=== PATIENT | male | born 1955 | race Caucasian/White ===

== ENCOUNTER 2018-06-11 13:17 | Outpatient (CLI) | payer BC ==
[2018-06-11] MEDS ORDERED: Gadobenate Dimeglumine 529 MG/1 ML (20ML VIAL) ONE (16:03)
--- NOTE | 2018-06-12 10:35 | MRI ---
MRI PELVIS WITH AND WITHOUT CONTRAST: (Prostate) Date: 06/11/18 INDICATION: History of prostate cancer and biopsy. COMPARISON: None. TECHNIQUE: Multiplanar, multisequence MR images were obtained of the pelvis utilizing prostate cancer specific p rotocol. 20 mL of MultiHance was utilized for the examination. The examination was interpreted utiliz ing separate etechies.in workstation for multiparametric evaluation. FINDINGS: The prostate measures 6.4 x 5.5 x 6.6 cm, for a total prostatic volume of 111.68 mL. There is a heter ogeneous appearance of the central gland consistent with changes of BPH. There is wedge shaped areas of mild hypointensity in the peripheral zone on T2. No focal area of restricted diffusion is seen wit hin the peripheral zone. No definite suspicious T2 signal abnormality is evident within the central z one. No area of abnormal enhancement is noted. IMPRESSION: 1. PI-RADS Category 2 - Low (clinically significant cancer is unlikely to be present). 2. Wedge-shaped regions of hypodensity within the peripheral zone are suspicious of sequelae of prio r prostatitis. Heterogeneous appearance of the central gland, with multiple encapsulated nodules wit hin the central zone, are suspicious for changes of BPH. POS: ANGELA
== END 2018-06-11 13:18 | disposition home or self-care (01) ==
LOC: TBSIIMAG 13:17
PROVIDERS: ATTEND Urology
DX: C61 Malignant neoplasm of prostate (principal); N40.2 Nodular prostate without lower urinary tract symptoms
CPT/HCPCS: 72197; 82565; A9579

== ENCOUNTER 2018-10-03 10:16 | Outpatient (CLI) | payer BC ==
--- NOTE | 2018-10-03 11:21 | RAD ---
RIGHT RIBS 3 VIEWS: Date: 10/03/18 HISTORY: Pain. COMPARISON: None. FINDINGS: No fracture. No cortical irregularity. No periosteal reaction. IMPRESSION: No evidence of a right rib fracture. POS: SHANE
== END 2018-10-03 10:17 | disposition home or self-care (01) ==
LOC: BICRAD 10:16
PROVIDERS: ATTEND Family Medicine
DX: R07.89 Other chest pain (principal)

== ENCOUNTER 2020-04-22 06:59 | Observation (INO) | payer BC ==
[2020-04-21 09:48] VITALS: BMI 28.8
[2020-04-22] MEDS ORDERED: Levofloxacin 500 mg/D5W 100 ml Premix Bag ONE (07:47)
[2020-04-22] MEDS ORDERED: Fentanyl 100 MCG/2 ML VIAL ONE ×2 (09:08→09:09)
[2020-04-22] MEDS ORDERED: B & O ONE (09:18)
[2020-04-22] MEDS ORDERED: Promethazine HCl 25 MG/ML VIAL SLOW IVP PRN (11:08)
[2020-04-22] MEDS ORDERED: Promethazine HCl 25 MG/ML VIAL IM PRN (11:08)
[2020-04-22] MEDS ORDERED: HYDROmorphone 2 MG/ML VIAL SLOW IVP PRN (11:08)
[2020-04-22] MEDS ORDERED: Meperidine HCl/PF 25 MG/ML VIAL SLOW IVP PRN (11:08)
[2020-04-22] MEDS ORDERED: Zolpidem Tartrate 5 MG TAB PO PRN (11:19)
[2020-04-22] MEDS ORDERED: Hyoscyamine Sulfate SL 0.125 mg Tablet SL PRN (11:19)
[2020-04-22] MEDS ORDERED: Phenazopyridine HCl 97.5 MG TABLET PO PRN (11:19)
[2020-04-22] MEDS ORDERED: Dextrose 5% in Water 1,000 ML IV PRN (11:19)
[2020-04-22] MEDS ORDERED: Bisacodyl 10 MG SUPP PR PRN (11:19)
[2020-04-22] MEDS ORDERED: HumaLOG 300 UNITS/3 ML VIAL SC PRN (11:19)
[2020-04-22] MEDS ORDERED: hydrALAZINE 20 MG/ML VIAL SLOW IVP PRN (11:19)
[2020-04-22] MEDS ORDERED: Oxybutynin 5 MG TAB PO PRN (11:19)
[2020-04-22] MEDS ORDERED: Ondansetron PF 4 MG/2 ML Vial IVP PRN (11:19)
[2020-04-22] MEDS ORDERED: diphenhydrAMINE 25 MG CAP PO PRN (11:19)
[2020-04-22] MEDS ORDERED: Mag-Al 1200 mg/1200 mg/30 ML UDCUP PO PRN (11:19)
[2020-04-22] MEDS ORDERED: Dextrose 50% Abboject 50 ML SYRINGE SLOW IVP PRN (11:19)
[2020-04-22] MEDS ORDERED: Acetaminophen 500 MG TAB PO PRN (11:19)
[2020-04-22] MEDS ORDERED: Morphine 2 MG/ML VIAL SLOW IVP PRN (11:19)
[2020-04-22] MEDS ORDERED: traMADol HCl 50 MG TAB PO PRN (11:25)
[2020-04-22] MEDS ORDERED: Lidocaine 1% PF 5 ML VIAL ONE (11:55)
[2020-04-22] MEDS ORDERED: Glycopyrrolate 0.2 MG/ML 5 ML SYRINGE ONE (11:55)
[2020-04-22] MEDS ORDERED: PROPOFOL 200 MG/20 ML VIAL ONE (11:55)
[2020-04-22] MEDS ORDERED: PHENYLEPHRINE-NS 100 MCG/ML 10 ML SYRINGE ONE (11:55)
[2020-04-22] MEDS ORDERED: Rocuronium Bromide 10 MG/ML (10ML VIAL) ONE (11:55)
[2020-04-22] MEDS ORDERED: Dexamethasone 20 MG/5 ML VIAL ONE (11:55)
[2020-04-22] MEDS ORDERED: Ondansetron PF 4 MG/2 ML Vial ONE (11:55)
--- NOTE | 2020-04-22 12:38 | OP ---
DATE OF PROCEDURE: 04/22/2020 SERVICE: Urology. PREOPERATIVE DIAGNOSIS: Benign prostatic hypertrophy with urinary retention. POSTOPERATIVE DIAGNOSIS: Benign prostatic hypertrophy with urinary retention. PROCEDURE PERFORMED: Transurethral resection of prostate with transurethral vaporization of the prostate. INDICATION FOR PROCEDURE: Mr. Guardado is a 65-year-old white male who was diagnosed with [place] 3+3 prostate cancer. He has an extremely large prostate with severe urinary symptoms. He is currently on active surveillance for his prostate cancer, but still wanted to do something about his urinary symptoms. His prostate was too large for UroLift, so we discussed transurethral resection of prostate. He understands that this may affect his future treatment options for prostate cancer. Risks and benefits of surgery were discussed and he has agreed to proceed forward. DESCRIPTION OF PROCEDURE: After identification of armband and verification of consent, the patient was brought back to the operating room where he underwent general anesthesia with an LMA. He was placed in a dorsal lithotomy position and prepped and draped in the usual sterile fashion. After appropriate time-out, a lubricated 26-[place] resectoscope sheath with visual obturator was passed through the urethra, passed the prostate into the bladder. The visual obturator was switched out for the bipolar prostate resectoscope loop. The ureters were identified in orthotopic location. Resection was started out at the bladder neck on the median lobe and resected circumferentially back to the verumontanum, taking care not to pass the verumontanum to avoid sphincteric injury. Resection was carried out for the majority of the prostate, although the prostate was extremely large and I felt that it was not going to be possible to try and resect the entire prostate in one sitting. Therefore, once the patient had an extremely large channel, I had estimated that the patient probably had 30% to 40% of this prostate resected. There probably still has a large amount of prostate still left. At this point, the Ellik evacuator was used to remove the prostate chips and the bipolar prostate loop was switched out for the bipolar plasma button. The button was used to vaporize and smooth out the intervening prostate tissue and obtain hemostasis until the prostate was completely dry and completely wide open from the bladder neck all the way to the verumontanum. Relaxing incisions were made at 5 and 7 o'clock to further open the bladder neck. Due to the patient's extremely large prostate and orientation of his bladder in relation to the prostate, there was extremely sharp angle between the bladder neck and the verumontanum, indicating that the patient probably would not be able to get a catheter in on his own. The hemostasis was again achieved and both ureters were checked in the orthotopic location. There were insurance that there were no prostate chips or debris left within the bladder. The bladder looked otherwise normal. The resectoscope was removed and attempts to pass a 3-way Mcfarlane catheter were unsuccessful as it was hitting the ridge on the prostate secondary to the sharp angle. Since we did want CBI and this 3-way catheters were not available and coude catheters, the resectoscope with visual obturator was passed back into the bladder. The resectoscope and visual obturator were removed, leaving the outer sheath in place. An Amplatz Super Stiff wire was placed through the sheath into the bladder and then the sheath removed. The 3-way Mcfarlane catheter was fashioned into a [place] tip catheter using a 14-gauge Angiocath needle. This was then used to guide over the Super Stiff wire into the bladder with ease. The wire was removed and 30 mL of sterile water was placed into the balloon. The patient had CBI initiated. The B and O suppository placed. He was then taken out of positioning, had a StatLock intact. He was awakened and taken to PACU for recovery in stable condition. COMPLICATIONS: None. ESTIMATED BLOOD LOSS: Minimal. RETAINED TUBES AND DRAINS: A 22-[place] 3-way Mcfarlane catheter on CBI. SPECIMENS: Prostate chips. DISPOSITION: The patient will be kept overnight. I think we will probably keep the catheter in given that he was previously in urinary retention to minimize the risk of postoperative retention and difficulty in replacing a catheter. I will probably plan to remove his catheter in 1 week at his postoperative appointment. Job ID: [id number]
[2020-04-22] MEDS: Empagliflozin 25 MG TAB PO SCH (14:27)
[2020-04-22] MEDS: metFORMIN 500 MG TAB PO SCH (19:26)
[2020-04-22] MEDS: Docusate 100 MG CAP PO SCH (20:11)
[2020-04-22] MEDS: Famotidine/PF 20 mg/2ml Vial SLOW IVP SCH (20:11)
[2020-04-22] MEDS ORDERED: Ezetimibe 10 MG TAB PO SCH (21:00)
[2020-04-23] MEDS: Famotidine/PF 20 mg/2ml Vial SLOW IVP SCH (08:39)
[2020-04-23] MEDS: metFORMIN 500 MG TAB PO SCH (08:40)
[2020-04-23] MEDS: Docusate 100 MG CAP PO SCH (08:40)
[2020-04-23] MEDS ORDERED: Alogliptin 25 MG TAB PO SCH (09:00)
[2020-04-23 12:21] VITALS: BP 148/87; TEMP 99.2
[2020-04-23] MEDS: Empagliflozin 25 MG TAB PO SCH (14:41)
--- NOTE | 2020-04-23 17:25 | PRG ---
DATE OF SERVICE: 04/23/2020 SUBJECTIVE: The patient states he is feeling fine. No complaints overnight. No bladder spasms, chest pain, or shortness of breath. OBJECTIVE: VITAL SIGNS: Temperature 99.2, pulse 93, respirations 16, blood pressure 148/87, and saturations 95% on room air. GENERAL: No apparent distress, communicative and alert. CARDIOVASCULAR: Regular rate and rhythm. ABDOMEN: Soft, nontender, and nondistended. : Mcfarlane catheter in place and completely clear urine. EXTREMITIES: No edema. ASSESSMENT AND PLAN: A 65-year-old male, status post transurethral resection of prostate, postoperative day 1. Urine is clear. We will plan a void trial. I did give the option the patient to go home with a catheter since he came in with a catheter and was in urinary retention. He understands it is about a 50% risk of staying in urinary retention immediately postoperatively. He wants to try and void. We will remove the catheter and perform serial urine collection. If he is able to void adequately and empty his bladder sufficiently, he can go home without a catheter. Job ID: [id number]
[2020-04-23] MEDS ORDERED: Atorvastatin Calcium 40 MG TAB PO SCH (21:00)
--- NOTE | 2020-04-24 04:44 | DIS ---
DATE OF ADMISSION: 04/22/2020 DATE OF DISCHARGE: 04/23/2020 ADMITTING DIAGNOSIS: Benign prostatic hypertrophy with urinary retention. DISCHARGE DIAGNOSIS: Benign prostatic hypertrophy with urinary retention. PROCEDURE PERFORMED: Transurethral resection and vaporization of the prostate. BRIEF HISTORY: Mr. Guardado is a 65-year-old male with a history of elevated PSA. His biopsy confirm that he has prostate cancer, low risk, but he has significant urinary symptoms. He has elected for a transurethral resection of prostate. We will continue to monitor his prostate cancer. He wanted to undergo surgery to get off medication and allow him to urinate since he is in complete urinary retention. The full H and P can be found in the scanned portion of the [employer] system. HOSPITAL COURSE: For operative surgery (please see operative note for details). The patient was kept on the floor for CBI. His urine remained clear overnight. His catheter was removed in the morning. The patient was able to void approximately 200 mL with a 350 mL PVR. I recommended he have his catheter replaced, but the patient did not want a catheter voiding again. His 2nd void showed voiding with 300 mL of PVR. I told the patient there is a chance that he will be able to get through the weekend and continue to improve his urination. However, given that he is only emptying 50%, there is risk for him to go into urinary retention this weekend. I again told him the safest route would be to replace the catheter, but the patient states he does not want a catheter and will take his chances and would rather go home without a catheter. He understands a risk of having to go back to the ER for a catheter placement. I felt that if this is what the patient wanted, he could be discharged without a catheter. DISCHARGE INSTRUCTIONS: All of the discharge instructions were explained to the patient. DISPOSITION: Discharged to home. DISCHARGE MEDICATIONS: The patient will resume all his home medications except aspirin and Flomax. Aspirin will be resumed once his hematuria has resolved. Flomax will be discontinued indefinitely. Additional medications prescribed are: 1. Tramadol 50 mg p.o. q.6 hours p.r.n. pain. 2. Colace 100 mg p.o. daily. 3. Oxybutynin 5 mg p.o. t.i.d. p.r.n. bladder spasms. 4. Pyridium 200 mg p.o. t.i.d. p.r.n. dysuria. I will see the patient back in approximately 1 to 2 weeks for postop check. Job ID: [id number]
== END 2020-04-23 16:55 | disposition home or self-care (01) ==
LOC: SDC 06:59 → SURG A 11:25
PROVIDERS: ADMIT Urology; ATTEND Urology
PROC: 0VT08ZZ Resection of Prostate, Via Natural or Artificial Opening Endoscopic (ICD-10-PCS; principal; 2020-04-22)
DX: N40.1 Benign prostatic hyperplasia with lower urinary tract symptoms (principal); R33.8 Other retention of urine; R35.0 Frequency of micturition; R35.1 Nocturia; C61 Malignant neoplasm of prostate; E78.5 Hyperlipidemia, unspecified; E11.9 Type 2 diabetes mellitus without complications; Z87.891 Personal history of nicotine dependence; Z79.84 Long term (current) use of oral hypoglycemic drugs; Z79.899 Other long term (current) drug therapy; Z91.018 Allergy to other foods; Z91.09 Other allergy status, other than to drugs and biological substances
CPT/HCPCS: 51798; 88305; 96374; 96375; 96376; G0378; J1100; J1956; J2405; J2704; J3010; S0028

== ENCOUNTER 2020-12-03 16:05 | Outpatient (CLI) | payer BC | END 2020-12-03 16:06 | disposition home or self-care (01) | LOC: SCSRAD 16:05 | PROVIDERS: ATTEND Chiropractor | DX: S16.1XXA Strain of muscle, fascia and tendon at neck level, initial encounter (principal); M47.812 Spondylosis without myelopathy or radiculopathy, cervical region | CPT/HCPCS: 72050 ==

== ENCOUNTER 2021-06-16 11:40 | Outpatient (CLI) | payer BC | END 2021-06-16 11:41 | disposition home or self-care (01) | LOC: BICRAD 11:40 | PROVIDERS: ATTEND Internal Medicine Rheumatology | DX: M25.572 Pain in left ankle and joints of left foot (principal); M77.32 Calcaneal spur, left foot ==